=== PATIENT | male | born 1955 | race Caucasian/White ===

== ENCOUNTER 2016-10-26 09:35 | Day surgery (SDC) | payer BC ==
[2016-10-26] MEDS ORDERED: MIDAZOLAM HCL 2MG/2ML VIAL IV ONE (14:00)
[2016-10-26] MEDS ORDERED: LIDOCAINE 2% MDV (20MG/ML) 20ML VIAL IV ONE (14:00)
[2016-10-26] MEDS ORDERED: PROPOFOL 10 MG/ML VIAL IV ONE (14:00)
--- NOTE | 2016-10-31 17:31 | Operative Note ---
DATE OF SURGERY: 10/26/2016 OPERATION: COLONOSCOPY with random biopsy and photo. PREOPERATIVE DIAGNOSIS: Colorectal cancer screening, average risk, initial screening. POSTOPERATIVE DIAGNOSES: 1. Sigmoid diverticulosis. 2. Mild ascending and transverse colonic erythema of unclear significance. PROCEDURE: After informed consent was obtained from the patient, he was placed in the left lateral decubitus position in the endoscopy suite, sedated and monitored by the department of anesthesia. Digital rectal examination was unremarkable. A well-lubricated UUT892 colonoscope was inserted into the rectum and advanced to the cecum. Preparation quality was good to excellent. The cecum, ileocecal valve, and appendiceal orifice were unremarkable; however, the ascending colon and transverse colon demonstrated mild petechial erythema of unclear significance. While this may represent a normal variant, random biopsies were obtained to rule out microscopic changes that would suggest a form of colitis. No polyps were seen in the ascending colon, cecum, transverse or descending colon. The sigmoid colon demonstrated a few diverticula but no polyps or mass lesions. The rectum was unremarkable in forward and in J-turn views. The endoscope was straightened, the rectal ampulla deflated, and the endoscope was removed. RECOMMENDATIONS: I would suggest the patient be on a high-fiber diet. He will require repeat exam in 10 years or sooner should symptoms or history warrant. As always, thank you for allowing me to participate in the healthcare of your patients. CC: TEMITOPE Romero
== END 2016-10-26 11:10 | disposition home or self-care (01) ==
LOC: HOP 09:35
PROVIDERS: ATTEND Internal Medicine Gastroenterology
DX: Z12.11 Encounter for screening for malignant neoplasm of colon (principal); K57.30 Diverticulosis of large intestine without perforation or abscess without bleeding; K63.89 Other specified diseases of intestine; I10 Essential (primary) hypertension